=== PATIENT | male | born 1940 | race Caucasian/White ===

== ENCOUNTER 2017-09-06 19:54 | Emergency (ER) | payer MEDICARE ==
[~2017-09-06] VITALS: Ht 177.8 cm; Wt 90.7 kg
[~2017-09-06 19:54] MED LIST: ALFU10 PO; ALFUZOSIN HCL10 MG PO; AMIO200 PO; ASPI325 PO; ASPI81CH PO; ASPI81EC PO; Atrovent Inha12.9 GM INH; FOLI1 PO; FURO40; FURO40 PO; GLIP10 PO; GLIP5 PO; GUAI600T33 PO; Guaifenesin-Co118 ML PO; Humulin N100 UNIT/1 SC; INSDET100 INJ; INSUASPI SC; INSULANPEN; INSULANPEN SC; IPRAOI INH; LEVFLO500 PO; LEVO750 PO; LISI20 PO; LISI5 PO; LOSARTAN POTASS50 MG PO; MAGNESIUM PO; METF500 PO; METO100ER PO; METO2.5 PO; METO50 PO; METTREX2.5 PO; Micro-K10 MEQ; NYST100000 PO; Novolin R100 UNIT/M SC; Novolog Fl100 UNIT/1 INJ; Novolog Fl100 UNIT/1 SC; OMEP20ER PO; OMEPRAZOLE DR 20 MG; POTA8 PO; PROSTATE 2.4 C1 EACH PO; Prednisone50 MG PO; Prevalite Pac4 G/PKT PO; Questran Light210 GM PO; SACC250C PO; SIMV40 PO; Simvastatin40 MG PO; Spironolactone50 MG PO; Trexall10 MG PO; Vitamin D400 UNI1 PO; WARF2.5; WARF2.5 PO; WARF5; WARF5 PO; XARELTO15 MG PO; [UNRECOGNIZED DRUG - OTHER] PO
[2017-09-06 21:18] LABS: BASOPHILS ABSOLUTE AUTO 0.07 K/mm3 (0.00-0.23); BASOPHILS PERCENT AUTO 1 % (0-2); EOSINOPHILS ABSOLUTE AUTO 0.03 K/mm3 (0.00-0.68); EOSINOPHILS PERCENT AUTO 0 % (0-6); Hematocrit 42.6 % (37.0-53.0); Hemoglobin 14.3 g/dL (13.5-17.5); IMMATURE GRAN ABSOLUTE AUTO 0.04 K/mm3 (0.00-0.10); IMMATURE GRAN PERCENT AUTO 0 % (0-1); LYMPHOCYTES ABSOLUTE AUTO 0.75 K/mm3 (0.84-5.20); LYMPHOCYTES PERCENT AUTO 5 % (21-46); MONOCYTES ABSOLUTE AUTO 0.49 K/mm3 (0.16-1.47); MONOCYTES PERCENT AUTO 3 % (4-13); Mean Corpuscular HGB 30.2 pg (26.0-34.0); Mean Corpuscular HGB Conc 33.6 g/dL (31.5-36.5); Mean Corpuscular Volume 90 fL (80-100); Mean Platelet Volume 12.3 fL (9.1-12.4); NEUTROPHILS ABSOLUTE AUTO 13.72 K/mm3 (1.96-9.15); NEUTROPHILS PERCENT AUTO 91 % (41-73); Platelet Count 232 K/mm3 (150-400); RDW Coefficient Variation 12.4 % (11.7-14.2); RDW Standard Deviation 40.6 fL (35.1-46.3); Red Blood Cell Count 4.74 M/mm3 (4.30-5.90)
[2017-09-06 21:42] LABS: Albumin/Globulin Ratio 0.7 (0.8-1.8); Bilirubin, Total 1.1 mg/dL (0.1-1.0); Bun/Creatinine Ratio 11.6 (12.0-20.0); Calcium, Blood 8.2 mg/dL (8.5-10.1); Creatinine, Blood 1.64 mg/dL (0.60-1.20); Globulin, Blood 4.1 g/dL (2.2-4.0); Potassium, Blood 4.7 mmol/L (3.5-5.5); Total Protein, Blood 7.1 g/dL (6.4-8.2)
[2017-09-07] MEDS ORDERED: HUMULIN 70100 UNIT/2 SC (00:55)
[2017-09-07] MEDS ORDERED: METO100ER PO (00:55)
[2017-09-07] MEDS ORDERED: SACC250C PO (00:55)
[2017-09-07] MEDS ORDERED: Humulin R500 UNIT/1 SC (00:55)
[2017-09-07 02:36] LABS: Source, Urine Clean Catch
[2017-09-07 02:38] LABS: Bilirubin, Urine Neg (Neg); Blood, Urine 4+ (Neg); Glucose Qualitative, Urine 2+ (Neg); Ketones, Urine 2+ (Neg); Leukocyte Esterase, Urine Neg (Neg); Nitrite, Urine Neg (Neg); Protein, Urine 2+ (Neg); Specific Gravity, Urine 1.025 (1.003-1.022); Urobilinogen, Urine NORM (Normal)
[2017-09-07 02:46] LABS: Appearance, Urine Clear (Clear); Color, Urine Yellow (P-Yellow)
[2017-09-07 02:49] LABS: Bacteria Not Seen /hpf; Mucus Light (0-Heavy); Red Blood Cells, Urine 0-2 /hpf (0-2); Squamous Epithelial Cells Few /hpf (Few); White Blood Cells, Urine 0-2 /hpf (0-5)
[2017-09-07] MEDS ORDERED: Norco 10-325 T1 EACH PO (03:27)
[2017-09-07] MEDS ORDERED: Zofran Odt4 MG SL (03:27)
== END 2017-09-07 04:17 | disposition home or self-care (01) ==
LOC: ER 19:54
PROVIDERS: Emergency Medicine
DX: N13.2 Hydronephrosis with renal and ureteral calculous obstruction (principal); I48.91 Unspecified atrial fibrillation; E11.9 Type 2 diabetes mellitus without complications; I10 Essential (primary) hypertension; I25.2 Old myocardial infarction; Z91.011 Allergy to milk products; Z79.899 Other long term (current) drug therapy; Z79.4 Long term (current) use of insulin; Z95.5 Presence of coronary angioplasty implant and graft; Z90.49 Acquired absence of other specified parts of digestive tract
CPT/HCPCS: 36415; 74176; 80053; 81001; 82010; 82947; 85025; 96374; 96375; 99284; J1170; J2405; J3010

== ENCOUNTER → 2017-10-01 | Outpatient (CLI) | payer MEDICARE ==
[~2017-10-01] MED LIST changes: +HUMULIN 70100 UNIT/2 SC; +Humulin R500 UNIT/1 SC; +Norco 10-325 T1 EACH PO; +Zofran Odt4 MG SL
[2017-10-01 15:49] LABS: Source, Urine Clean Catch
[2017-10-01 16:31] LABS: Appearance, Urine Clear (Clear); Color, Urine Yellow (P-Yellow)
[2017-10-01 16:32] LABS: Bilirubin, Urine Neg (Neg); Blood, Urine Neg (Neg); Glucose Qualitative, Urine 2+ (Normal); Ketones, Urine Neg (Neg); Leukocyte Esterase, Urine Neg (Neg); Nitrite, Urine Neg (Neg); Protein, Urine Neg (Neg); Urobilinogen, Urine NORM (Normal)
[2017-10-03 10:26] LABS: Uric Acid, Urine 31.8 mg/dL (7.5-49.5)
[2017-10-03 10:27] LABS: Phosphorus, Urine 26.9 mg/dL (20.0-60.0)
[2017-10-03 10:30] LABS: Protein, Urine Quantitative 15.5 mg/dL (0.0-11.9); Sodium, Urine 122 mmol/L (20-110); Urine Potassium 42 mmol/L (12.0-75.0)
== END | disposition home or self-care (01) ==
LOC: LAB EV 08:30
PROVIDERS: Internal Medicine Nephrology
DX: N18.3 Chronic kidney disease, stage 3 (moderate) (principal); D63.1 Anemia in chronic kidney disease; N25.81 Secondary hyperparathyroidism of renal origin; E55.9 Vitamin D deficiency, unspecified; E78.00 Pure hypercholesterolemia, unspecified; N20.0 Calculus of kidney; R76.9 Abnormal immunological finding in serum, unspecified; R94.5 Abnormal results of liver function studies; R94.6 Abnormal results of thyroid function studies
CPT/HCPCS: 81003; 81050; 82043; 82131; 82507; 82570; 83945; 84105; 84133; 84156; 84300; 84560

== ENCOUNTER 2017-12-15 16:23 | Emergency (ER) | payer MEDICARE ==
[~2017-12-15] VITALS: Ht 182.9 cm; Wt 88.5 kg
[2017-12-15 17:31] LABS: Alanine Aminotransfer (ALT/SGP 12 U/L (12-78); Albumin, Blood 3.1 g/dL (3.4-5.0); Albumin/Globulin Ratio 0.8 (0.8-1.8); Alk Phos 92 U/L (50-136); Anion Gap 9 mmol/L (6-16); Aspartate Aminotrans (AST/SGOT 18 U/L (12-37); Blood Urea Nitrogen 19 mg/dL (8-24); Bun/Creatinine Ratio 13.4 (12.0-20.0); CO2, Blood 25 mmol/L (21-32); Calcium, Blood 8.6 mg/dL (8.5-10.1); Chloride, Blood 106 mmol/L (98-108); Creatinine, Blood 1.42 mg/dL (0.60-1.20); Globulin, Blood 4.1 g/dL (2.2-4.0); Glomerular Filtration Rate 51 (60-); Glucose, Blood 165 mg/dL (70-99); Potassium, Blood 3.7 mmol/L (3.5-5.5); Sodium, Blood 140 mmol/L (136-145); Total Protein, Blood 7.2 g/dL (6.4-8.2); Troponin I <0.015 ng/mL (0.000-0.040)
[2017-12-15 17:35] LABS: Bilirubin, Total 1.1 mg/dL (0.1-1.0)
[2017-12-15 18:06] LABS: BASOPHILS ABSOLUTE AUTO 0.08 K/mm3 (0.00-0.23); BASOPHILS PERCENT AUTO 1 % (0-2); EOSINOPHILS ABSOLUTE AUTO 0.05 K/mm3 (0.00-0.68); EOSINOPHILS PERCENT AUTO 0 % (0-6); Hematocrit 45.6 % (37.0-53.0); Hemoglobin 14.8 g/dL (13.5-17.5); IMMATURE GRAN ABSOLUTE AUTO 0.03 K/mm3 (0.00-0.10); IMMATURE GRAN PERCENT AUTO 0 % (0-1); LYMPHOCYTES ABSOLUTE AUTO 0.84 K/mm3 (0.84-5.20); LYMPHOCYTES PERCENT AUTO 7 % (21-46); MONOCYTES ABSOLUTE AUTO 0.59 K/mm3 (0.16-1.47); MONOCYTES PERCENT AUTO 5 % (4-13); Mean Corpuscular HGB 30.1 pg (26.0-34.0); Mean Corpuscular HGB Conc 32.5 g/dL (31.5-36.5); Mean Corpuscular Volume 93 fL (80-100); Mean Platelet Volume 12.6 fL (9.1-12.4); NEUTROPHILS ABSOLUTE AUTO 9.97 K/mm3 (1.96-9.15); NEUTROPHILS PERCENT AUTO 86 % (41-73); Platelet Count 146 K/mm3 (150-400); RDW Coefficient Variation 12.8 % (11.7-14.2); RDW Standard Deviation 44.2 fL (35.1-46.3); Red Blood Cell Count 4.91 M/mm3 (4.30-5.90); White Blood Cell Count 11.56 K/mm3 (4.00-11.30)
== END 2017-12-15 19:00 | disposition home or self-care (01) ==
LOC: ER 16:23 → MRI 17:00 → ER 19:00
PROVIDERS: Emergency Medicine
DX: R55 Syncope and collapse (principal); I48.91 Unspecified atrial fibrillation; R29.818 Other symptoms and signs involving the nervous system; I25.2 Old myocardial infarction; E11.9 Type 2 diabetes mellitus without complications; I10 Essential (primary) hypertension; Z79.4 Long term (current) use of insulin; Z79.899 Other long term (current) drug therapy
CPT/HCPCS: 36415; 71046; 80053; 82947; 84484; 85025; 93005; 93010; 93880; 96360; 96361; 99284; J7030

== ENCOUNTER → 2019-09-29 | Outpatient (CLI) | payer MEDICARE ==
[2019-09-29 11:37] LABS: Bilirubin, Urine Neg (Neg); Blood, Urine 4+ (Neg); Glucose Qualitative, Urine Neg (Neg); Ketones, Urine 1+ (Neg); Leukocyte Esterase, Urine 3+ (Neg); Nitrite, Urine Pos (Neg); Protein, Urine 3+ (Neg); Specific Gravity, Urine 1.015 (1.003-1.022); Urobilinogen, Urine NORM (Normal)
[2019-09-29 11:58] LABS: Appearance, Urine Turbid (Clear); Color, Urine Yellow (P-Yellow)
[2019-09-29 11:59] LABS: Bacteria Many /hpf; Red Blood Cells, Urine TNTC /hpf (0-2); Squamous Epithelial Cells Not Seen /hpf (Few); White Blood Cells, Urine TNTC /hpf (0-5)
== END | disposition home or self-care (01) ==
LOC: LAB 10:55 → LAB SHORT 10:55
PROVIDERS: Hospitalist
DX: N39.0 Urinary tract infection, site not specified (principal)
CPT/HCPCS: 81001; 87086